=== PATIENT | male | born 1995 | race Native Hawaiian/Other Pacific Islander ===

== ENCOUNTER 2016-10-06 16:44 | Outpatient (CLI) | payer OTHER | END 2016-10-06 17:44 | disposition home or self-care (01) | LOC: RAD 16:44 | DX: M54.5 Low back pain (principal) ==

== ENCOUNTER 2017-08-02 21:44 | Emergency (ER) | payer OTHER ==
[~2017-08-02] VITALS: Ht 180.3 cm; Wt 104.3 kg
[2017-08-02 22:23] LABS: PLATELET COUNT 288 K/uL (142-355)
[2017-08-02 22:28] VITALS: BP 141/75; TEMP 98.7
== END 2017-08-02 22:30 | disposition home or self-care (01) ==
LOC: ED 21:44
DX: T63.2X1A Toxic effect of venom of scorpion, accidental (unintentional), initial encounter (principal); Y92.098 Other place in other non-institutional residence as the place of occurrence of the external cause
CPT/HCPCS: 36415; 85027; 96374; 96375; 99284; J1200; J2930

== ENCOUNTER 2017-08-31 17:53 | Outpatient (CLI) | payer OTHER ==
[2017-08-31 18:50] LABS: PLATELET COUNT 289 K/uL (142-355)
[2017-08-31 19:00] LABS: POTASSIUM 3.7 mmol/L (3.6-5.2); SODIUM 138 mmol/L (136-145)
== END 2017-08-31 19:39 | disposition home or self-care (01) ==
LOC: LABW 17:53
PROVIDERS: Internal Medicine
DX: R10.84 Generalized abdominal pain (principal)
CPT/HCPCS: 36415; 80053; 82150; 83690; 85027

== ENCOUNTER 2017-09-01 14:00 | Emergency (ER) | payer OTHER ==
[~2017-09-01] VITALS: Ht 180.3 cm; Wt 111.1 kg
[2017-09-01 14:05] VITALS: TEMP 98.3
[2017-09-01 16:00] VITALS: BP 126/66
== END 2017-09-01 16:25 | disposition home or self-care (01) ==
LOC: ED 14:00
DX: R11.10 Vomiting, unspecified (principal)
CPT/HCPCS: 36415; 96374; 99284; J2405

== ENCOUNTER 2018-02-12 10:54 | Emergency (ER) | payer OTHER ==
[~2018-02-12] VITALS: Ht 180.3 cm; Wt 106.6 kg
[2018-02-12 11:42] LABS: PLATELET COUNT 287 K/uL (142-355)
[2018-02-12 11:59] LABS: POTASSIUM 3.9 mmol/L (3.6-5.2)
[2018-02-12 12:45] VITALS: BP 147/74; TEMP 97.9
== END 2018-02-12 12:55 | disposition home or self-care (01) ==
LOC: ED 10:54
PROVIDERS: Specialist
DX: M54.5 Low back pain (principal); X50.1XXA Overexertion from prolonged static or awkward postures, initial encounter
CPT/HCPCS: 80048; 81000; 85027; 96374; 96375; 99284; J1170; J1885; J2405